=== PATIENT | female | born 1975 | race Caucasian/White ===

== ENCOUNTER 2016-08-19 11:30 | Outpatient (RCR) | payer BC ==
[~2016-08-19 11:30] MED LIST: ALLEGRA180 MG PO; ANTIVERT 25MG25 MG PO; FLONASE NASAL S16 GM NS
== END 2016-09-07 11:14 ==
LOC: WSPT 11:30
DX: M54.17 Radiculopathy, lumbosacral region (principal)
CPT/HCPCS: G0283-GP

== ENCOUNTER → 2016-09-16 | Outpatient (CLI) | payer BC | LOC: MC.RAD 16:30 | DX: Z12.31 Encounter for screening mammogram for malignant neoplasm of breast (principal); Z90.10 Acquired absence of unspecified breast and nipple ==

== ENCOUNTER 2016-11-18 16:45 | Outpatient (RCR) | payer BC | END 2016-12-16 08:56 | LOC: WSPT 16:45 | DX: M51.26 Other intervertebral disc displacement, lumbar region (principal); Z98.890 Other specified postprocedural states | CPT/HCPCS: G0283-GP ==

== ENCOUNTER → 2018-02-28 | Outpatient (CLI) | payer BC | LOC: MC.RAD 07:37 | DX: Z12.31 Encounter for screening mammogram for malignant neoplasm of breast (principal) ==

== ENCOUNTER → 2020-12-12 | Outpatient (CLI) | payer BC | LOC: MC.RAD 06:59 | DX: Z12.31 Encounter for screening mammogram for malignant neoplasm of breast (principal) ==

== ENCOUNTER → 2022-12-06 | Outpatient (CLI) | payer BC | LOC: MC.RAD 09:49 | DX: N64.89 Other specified disorders of breast (principal) ==

== ENCOUNTER → 2022-12-10 | Outpatient (CLI) | payer BC | LOC: MC.RAD 13:24 | DX: N63.10 Unspecified lump in the right breast, unspecified quadrant (principal) ==

== ENCOUNTER → 2023-06-07 | Outpatient (CLI) | payer BC | LOC: COL.VAS 08:16 | DX: I51.7 Cardiomegaly (principal); I34.0 Nonrheumatic mitral (valve) insufficiency ==

== ENCOUNTER → 2023-07-19 | Outpatient (CLI) | payer BC | LOC: COL.RAD 10:21 | DX: D17.79 Benign lipomatous neoplasm of other sites (principal) ==